=== PATIENT | male | born 1955 | race Caucasian/White ===

== ENCOUNTER 2019-07-10 08:08 | Emergency (ER) | payer OTHER ==
[~2019-07-10] VITALS: Ht 177.8 cm; Wt 93.0 kg
[~2019-07-10 08:08] MED LIST: ALDACTONE25 MG PO; ALLOPURINOL 10100 M1 PO; AMOXIL 875 MG875 M1 PO; ASPIR 8181 MG PO; ASPIRIN325; ATIVAN1 MG PO; CARVEDILOL6.25 MG PO; CATAPRES0.2 M1 PO; CATAPRES0.2 MG PO; CIPROFLOXACIN500 M1 PO; COREG6.25 MG PO; COZAAR 50 MG TA50 M1 PO; FLAGYL500 MG PO; FLEXERIL PO; GLUCOPHAGE1000 MG PO; HYDRALAZINE 2525 MG PO; HYDROCHLOROTH12.5 M2 PO; LIPITOR40 MG PO; LIPITOR80 MG PO; LISINOPRIL10 MG PO; LISINOPRIL5 MG PO; MAXZIDE-25 MG1 EACH PO; MELADOX3 MG PO; MELATONIN3 MG PO; NABUMETONE 500500 M1 PO; NIFEDICAL XL60 MG PO; NORCO 5-325 TA1 EAC1 PO; NORCO 5-325 TA1 EACH PO; OMEPRAZOLE20 M2 PO; ONGLYZA5 MG PO; PAXIL10 MG PO; PERCOCET PO; PLAVIX 75 MG TA75 M1 PO; PLAVIX 75 MG TA75 MG PO; SIMVASTATIN40 MG PO; SPIRONOLACTONE25 M1 GT; TRAZODONE HCL100 MG PO; VALIUM5 MG PO; XANAX 0.5 MG0.5 MG PO; ZOCOR40 MG PO; ZOFRAN4 MG PO
[2019-07-10] MEDS ORDERED: AUGMENTIN 500-1 EACH PO (09:29)
[2019-07-10] MEDS ORDERED: HYDROCODON-ACE1 EAC7 PO (09:29)
[2019-07-10 09:52] VITALS: BP 133/89
== END 2019-07-10 09:52 | disposition home or self-care (01) ==
LOC: M.ERS 08:08
DX: S60.021A Contusion of right index finger without damage to nail, initial encounter (principal); I10 Essential (primary) hypertension; E11.9 Type 2 diabetes mellitus without complications; E78.00 Pure hypercholesterolemia, unspecified; Z90.49 Acquired absence of other specified parts of digestive tract; Z95.5 Presence of coronary angioplasty implant and graft; W23.0XXA Caught, crushed, jammed, or pinched between moving objects, initial encounter; Y93.89 Activity, other specified; Y92.89 Other specified places as the place of occurrence of the external cause; Y99.0 Civilian activity done for income or pay

== ENCOUNTER 2020-06-23 21:00 | Emergency (ER) | payer OTHER ==
[~2020-06-23] VITALS: Ht 180.3 cm; Wt 74.8 kg
[~2020-06-23 21:00] MED LIST changes: +AUGMENTIN 500-1 EACH PO; +HYDROCODON-ACE1 EAC7 PO
[2020-06-23] MEDS ORDERED: APAP W/CODEINE1 TA2 PO (21:28)
[2020-06-23 21:46] VITALS: BP 124/70
== END 2020-06-23 21:47 | disposition home or self-care (01) ==
LOC: M.ERS 21:00
DX: Z20.828 Contact with and (suspected) exposure to other viral communicable diseases (principal); I10 Essential (primary) hypertension; E78.00 Pure hypercholesterolemia, unspecified; E11.9 Type 2 diabetes mellitus without complications; Z90.49 Acquired absence of other specified parts of digestive tract

== ENCOUNTER → 2021-04-17 | Outpatient (CLI) | payer OTHER ==
[~2021-04-17] MED LIST changes: +APAP W/CODEINE1 TA2 PO
--- NOTE | 2021-04-17 11:24 | 2DMMODE ---
[place] [address] 2 D/M-MODE ECHOCARDIOGRAM Name: FEDEJAMI BALJIT Room: [facility]#: [id number] Admission: 04/17/21 Attend Phys: Gail Palma Discharge: Date of : 59 Date of Service: 04/17/21 1123 Report #: [id number] THIS REPORT FOR: cc: [facility] - Clinic physician unknown [facility] - Clinic physician unknown Butch Osborne MD [facility] ~ APPROVED REPORT Study performed: 04/17/2021 11:04:15 EXAM: Comprehensive 2D, Doppler, and color-flow Echocardiogram Patient Location: Out-Patient BSA: 2.17 HR: 80 bpm BP: 135/80 mmHg Other Information Study Quality: Good Indications CAD 2D Dimensions IVSd: 10.26 (7-11mm) LVOT Diam: 20.66 (18-24mm) LVDd: 45.37 mm PWd: 10.50 (7-11mm) Ascending Ao: 31.54 (22-36mm) LVDs: 21.28 (25-40mm) Aortic Root: 33.15 mm Volumes Left Atrial Volume (Systole) LA ESV Index: 18.50 mL/m2 Aortic Valve AoV Peak Soto.: 1.34 m/s AO Peak Gr.: 7.23 mmHg LVOT Max P.66 mmHg AO Mean Gr.: 3.89 mmHg LVOT Mean P.08 mmHg LVOT Max V: 1.38 m/s AO V2 VTI: 28.50 cm LVOT Mean V: 0.78 m/s ESTUARDO (VTI): 3.35 cm2 LVOT V1 VTI: 28.48 cm Mitral Valve E/A Ratio: 0.92 [place] [address] 2 D/M-MODE ECHOCARDIOGRAM Name: JAMI MISTRY Room: [facility]#: [id number] Admission: 04/17/21 Attend Phys: Gail Palma Discharge: Date of : 59 Date of Service: 04/17/21 1123 Report #: [id number] MV Decel. Time: 221.70 ms MV E Max Soto.: 0.88 m/s MV PHT: 64.29 ms MVA (PHT): 3.42 cm2 TDI E/Lateral E': 8.80 E/Medial E': 9.78 Medial E' Soto.: 0.09 m/s Lateral E' Soto.: 0.10 m/s Pulmonary Valve PV Peak Soto.: 1.23 m/s PV Peak Gr.: 6.01 mmHg Left Ventricle The left ventricle is normal size. There is normal LV segmental wall motion. There is normal left ventricular wall thickness. Left ventricular systolic function is normal. The left ventricular ejection fraction is within the normal range. LVEF is 55-60%. Grade I - abnormal relaxation pattern. Right Ventricle The right ventricle is normal size. The right ventricular systolic function is normal. Atria The left atrium size is normal. The right atrium size is normal. Aortic Valve The Aortic valve is sclerotic. No aortic regurgitation is present. There is no aortic valvular stenosis. Mitral Valve The mitral valve is normal in structure. There is no mitral valve regurgitation noted. No evidence of mitral valve stenosis. Tricuspid Valve The tricuspid valve is normal in structure. There is no tricuspid valve regurgitation noted. Pulmonic Valve The pulmonary valve is normal in structure. There is no pulmonic valvular regurgitation. Great Vessels The aortic root is normal in size. IVC [place] [address] 2 D/M-MODE ECHOCARDIOGRAM Name: JAMI MISTRY Room: [facility]#: [id number] Admission: 04/17/21 Attend Phys: Gail Palma Discharge: Date of : 59 Date of Service: 04/17/21 1123 Report #: [id number] collapses >50% with inspiration. Pericardium There is no pericardial effusion. <Conclusion> LVEF is 55-60%. The Aortic valve is sclerotic. <ELECTRONICALLY SIGNED> By: Butch Osborne MD, FAC 04/17/21 1123 22 22 Butch Osborne MD, [facility] /INF
== END ==
LOC: M.CRD 04-16 11:00
PROVIDERS: ATTEND Internal Medicine
DX: I35.8 Other nonrheumatic aortic valve disorders (principal); I25.10 Atherosclerotic heart disease of native coronary artery without angina pectoris; I50.9 Heart failure, unspecified

== ENCOUNTER 2021-05-29 17:50 | Emergency (ER) | payer OTHER ==
[2021-05-29] MEDS ORDERED: NORFLEX100 MG PO (22:22)
[2021-05-29] MEDS ORDERED: HYDROCODON-ACE1 EAC7 PO (22:44)
== END 2021-05-29 18:52 | disposition left against medical advice (07) ==
LOC: M.ERS 17:50
DX: M54.50 Low back pain, unspecified (principal); Z53.21 Procedure and treatment not carried out due to patient leaving prior to being seen by health care provider

== ENCOUNTER 2021-05-29 20:30 | Emergency (ER) | payer OTHER ==
[~2021-05-29] VITALS: Ht 175.3 cm; Wt 99.8 kg
[2021-05-29] MEDS ORDERED: NORFLEX100 MG PO (22:22)
[2021-05-29] MEDS ORDERED: HYDROCODON-ACE1 EAC7 PO (22:44)
[2021-05-29 23:00] VITALS: BP 139/75
== END 2021-05-29 23:00 | disposition home or self-care (01) ==
LOC: M.ERS 20:30
DX: M54.50 Low back pain, unspecified (principal); I10 Essential (primary) hypertension; E11.9 Type 2 diabetes mellitus without complications; E78.00 Pure hypercholesterolemia, unspecified; I25.2 Old myocardial infarction; F17.210 Nicotine dependence, cigarettes, uncomplicated; Z90.89 Acquired absence of other organs; Z79.51 Long term (current) use of inhaled steroids; Z79.84 Long term (current) use of oral hypoglycemic drugs; Z79.891 Long term (current) use of opiate analgesic; Z79.899 Other long term (current) drug therapy